=== PATIENT | female | born 1945 | race American Indian/Alaskan Native ===

== ENCOUNTER 2017-07-23 13:52 | Emergency (ER) | payer MEDICARE ==
[2017-07-23] MEDS ORDERED: ULTRAM PO ONE (17:38)
--- NOTE | 2017-07-23 17:40 | Emergency Department Report ---
Blank Doc - Documentation Documentation: Patient is a 71-year-old female who states that approximately 2 days ago she missed step and she felt a small amount of discomfort in the left ankle patient' s states that she started to use a heating pad and some [place] balm to try to help this area heal. Patient states that this morning she woke up in the ankle is significantly more swollen she has pain at the left lateral malleolus. Patient states that there is some discomfort also in the anterior left knee. Patient denies any falls. X-ray will be done to rule out stress fracture. Patient does not have any significant posterior calf tenderness or posterior knee tenderness. I do not suspect a DVT on initial assessmen patient will be reassessed after x-ray. Tiki
--- NOTE | 2017-07-23 17:44 | Emergency Department Report ---
ED Lower Extremity HPI - General Chief Complaint: Extremity Problem,Nontraumatic Stated Complaint: PAINFUL/SWELLING LEGS Time Seen by Provider: 07/23/17 17:28 Source: patient Mode of arrival: Wheelchair Limitations: No Limitations - History of Present Illness Initial Comments: Patient is a 71-year-old female who states that approximately 2 days ago she missed step and she felt a small amount of discomfort in the left ankle patient' s states that she started to use a heating pad and some [place] balm to try to help this area heal. Patient states that this morning she woke up in the ankle is significantly more swollen she has pain at the left lateral malleolus. Patient states that there is some discomfort also in the anterior left knee. Patient denies any falls. Pain is 9 out of 10 and achy. Located to the left outer ankle. Pain is worse with movement better with rest. Patient said that she's been ambulated on left ankle and swelling has been increasing over the past couple days. No medication taken per patient MD Complaint: ankle injury Onset/Timin -: days(s) Injury: Ankle: Left (left ankle pain and swelling status post injury) Type of Injury: other (missed up which causes ankle injury. Report that she rolled her ankle.) Place: street/outdoors Severity: severe Severity scale (0 -10): 9 Improves With: rest Worsens With: weight bearing, movement, palpation Context: walking Associated Symptoms: swelling, able to partially bear weight. denies: numbness , tingling Treatments Prior to Arrival: other (none) - Related Data Previous Rx's Medication Instructions Recorded Last Taken Type traMADol [Ultram] 50 mg PO Q6HR PRN #12 tablet 07/23/17 Unknown Rx Allergies Allergy/AdvReac Type Severity Reaction Status Date / Time No Known Allergies Allergy Verified 07/23/17 14:46 ED Review of Systems ROS: Stated complaint: PAINFUL/SWELLING LEGS Other details as noted in HPI Comment: All other systems reviewed and negative Constitutional: no symptoms reported Respiratory: no symptoms reported Cardiovascular: denies: chest pain, palpitations, dyspnea on exertion, orthopnea , edema, syncope, paroxysmal nocturnal dyspnea Gastrointestinal: denies: abdominal pain, nausea, vomiting Musculoskeletal: joint swelling, arthralgia. denies: back pain, myalgia Skin: denies: rash Neurological: abnormal gait. denies: headache, weakness, numbness, paresthesias , confusion ED Past Medical Hx - Past Medical History Previous Medical History?: Yes Hx Hypertension: Yes Hx Diabetes: Yes Additional medical history: kidney disease - Surgical History Past Surgical History?: Yes Additional Surgical History: knee, rotator cuff - Family History Family history: hypertension - Social History Smoking Status: Never Smoker Substance Use Type: None - Medications Home Medications: Home Medications Medication Instructions Recorded Confirmed Last Taken Type traMADol [Ultram] 50 mg PO Q6HR PRN #12 tablet 07/23/17 Unknown Rx ED Physical Exam - General Limitations: No Limitations General appearance: alert, in no apparent distress - Head Head exam: Present: atraumatic, normocephalic, normal inspection - Eye Eye exam: Present: normal appearance, PERRL, EOMI - ENT ENT exam: Present: normal exam, normal orophraynx, mucous membranes moist - Neck Neck exam: Present: normal inspection, tenderness, full ROM, other (no C-spine tenderness). Absent: lymphadenopathy - Respiratory Respiratory exam: Present: normal lung sounds bilaterally. Absent: respiratory distress, chest wall tenderness - Cardiovascular Cardiovascular Exam: Present: regular rate, normal rhythm, normal heart sounds - GI/Abdominal GI/Abdominal exam: Present: soft, normal bowel sounds. Absent: distended, tenderness - Extremities Exam Extremities exam: Present: tenderness, normal capillary refill, pedal edema, joint swelling, other (no clubbing or cyanosis. No swelling except for left ankle and foot swelling. +2 pulses all extremities. No neurovascular compromise. Patient with decrease strength to left lower extremity at ankle and foot due to pain and injury. Otherwise strength of other extremity 5/5). Absent: normal inspection, full ROM, calf tenderness - Expanded Lower Extremity Exam Left Hip exam: Present: normal inspection, full ROM, pelvic stability. Absent: tenderness, swelling, abrasion, laceration, ecchymosis, deformity, crepidus, dislocation, erythema, external rotation, internal rotation, shortening Upper Leg exam: Present: normal inspection, full ROM. Absent: tenderness, swelling, abrasion, laceration, ecchymosis, deformity, crepidus, dislocation, erythema Knee exam: Present: normal inspection, full ROM, full knee extension. Absent: tenderness, swelling, abrasion, ecchymosis, deformity, crepidus, dislocation, erythema, effusion, pain w/ pronation/supination, posterior draw sign, pain/ laxity with valgus, pain/laxity with varus Lower Leg exam: Present: normal inspection, full ROM. Absent: tenderness, swelling, abrasion, laceration, ecchymosis, deformity, crepidus, dislocation, erythema, palpable cord, Collins's sign Ankle exam: Present: tenderness (left outer malleolus tender to palpate tibial side. With swelling and decrease in movement.), swelling. Absent: normal inspection, full ROM, abrasion, laceration, ecchymosis, deformity, crepidus, dislocation, erythema Foot/Toe exam: Present: normal inspection, tenderness, swelling. Absent: full ROM (decreased range of motion to left foot due to pain and swelling.), abrasion , laceration, ecchymosis, deformity, crepidus, dislocation, erythema, amputation , puncture wound, foreign body, calcaneal tenderness, tenderness at base of 5th metatarsal, nail avulsion, subungual hematoma Neuro vascular tendon exam: Present: no vascular compromise, motor deficit ( decreased movement to left ankle due to pain and swelling secondary to injury), significant pain with passive ROM of distal joint. Absent: pulse deficit, abnormal cap refill, sensory deficit, tendon deficit, extremity cold to touch, pallor, abnormal 2-point discrimination, decreased fine/light touch, foot drop, peroneal nerve deficit Gait: Positive: antalgic - Back Exam Back exam: Present: normal inspection, full ROM, other (ambulates without any difficulties). Absent: tenderness, CVA tenderness (R), CVA tenderness (L), muscle spasm, paraspinal tenderness, vertebral tenderness, rash noted - Neurological Exam Neurological exam: Present: alert, oriented X3, abnormal gait (abnormal gait due to pain and injury), motor sensory deficit (normal sensation but movement to left lower extremity at the ankle), reflexes normal - Psychiatric Psychiatric exam: Present: normal affect, normal mood - Skin Skin exam: Present: warm, dry, intact, normal color. Absent: rash ED Course Vital Signs 07/23/17 14:46 Temperature 98.9 F Pulse Rate 71 Respiratory 16 Rate Blood Pressure 140/44 O2 Sat by Pulse 100 Oximetry - Reevaluation(s) Reevaluation #1: 07/23/17 19:09 Patient stable throughout ED stay. She was given Ultram 50 mg by mouth for left foot and ankle pain. Reevaluation #2: 07/23/17 19:12 See procedure note for details on OCL splint to the left ankle. - Orthopedic Splinting/Casting Injury #1 Side: left Lower Extremity Injury Location: ankle Lower Extremity Immobilizer: posterior splint (Gabriel) Other Orthopedic Equipment: crutches (demonstrate use of crutches effectively) Additional Comments: Patient with good color, sensation, movement and temperature 2 toes of left foot status post splint placement ED Lower Extremity MDM - Radiology Data Radiology results: report reviewed X-ray of left ankle reveal nondisplaced fracture left distal fibula, pes planus and bone spur. - Medical Decision Making ED course: status post left ankle injury with x-rays showing patient with fracture to distal fibula, left. Nondisplaced. This is discussed with patient. Prior to x-ray result patient was placed in ankle sterile for stress fracture. Final x-ray findings explained to patient and ankle stirrup removed and patient placed in a posterior ankle splint, [place]. Crutches with training and she demonstrated effective use of crutches. Patient was given Ultram 50 mg when necessary emergency room to manage pain which is that she does have. She has good neurovascular status. I explained to patient and family the diagnosis and treatment plan and they voiced understanding. Patient to follow up with Dr. Ricardo for orthopedic doctor in 2-3 days. Rice therapy explained. Patient discharged home with prescription for Ultram. Critical care attestation.: If time is entered above; I have spent that time in minutes in the direct care of this critically ill patient, excluding procedure time. ED Disposition Clinical Impression: Arthralgia of left ankle Fracture of fibula, distal Qualifiers: Encounter type: initial encounter Fracture type: closed Fracture morphology: unspecified fracture morphology Laterality: left Qualified Code(s): S82.832A - Other fracture of upper and lower end of left fibula, initial encounter for closed fracture Injury of ankle, left Qualifiers: Encounter type: initial encounter Qualified Code(s): S99.912A - Unspecified injury of left ankle, initial encounter Disposition: - TO HOME OR SELFCARE Is pt being admited?: No Does the pt Need Aspirin: No Condition: Stable Instructions: Arthralgia (ED), Ankle Fracture (ED), Splint Care (ED), Crutch Instructions (ED), RICE Therapy (ED) Additional Instructions: Please follow up with orthopedic doctor in 2-3 days Take medication as prescribed but please do not drive or operate heavy machinery as this medication causes drowsiness. Referred to discharge instruction on splint care. Referred to discharge instruction in Rice therapy. Prescriptions: traMADol [Ultram] 50 mg PO Q6HR PRN #12 tablet PRN Reason: Pain Referrals: CANDELARIA SERVIN MD [Staff Physician] - 2-3 Days Forms: Accompanied Note
--- NOTE | 2017-07-23 18:57 | XRay Report ---
FINAL REPORT EXAM: XR ANKLE 3+V LT HISTORY: injury lateral mall pain/ swelling TECHNIQUE: Left ankle three views PRIORS: None. FINDINGS: There is diffuse soft tissue swelling On oblique view there is a vertical lucency seen through distal fibular metadiaphysis consistent nondisplaced fracture. Joint spaces are within normal limits. Noted is pes planus deformity of the foot. There is a plantar calcaneal enthesophyte. IMPRESSION: Nondisplaced fracture through the distal fibula Soft tissue swelling Pes planus Heel spur
[2017-07-23 21:23] VITALS: BP 132/58
== END 2017-07-23 21:23 | disposition home or self-care (01) ==
LOC: ED 13:52
DX: S82.832A Other fracture of upper and lower end of left fibula, initial encounter for closed fracture (principal); I10 Essential (primary) hypertension; E11.9 Type 2 diabetes mellitus without complications; X58.XXXA Exposure to other specified factors, initial encounter; Y93.01 Activity, walking, marching and hiking; Y99.8 Other external cause status; Y92.410 Unspecified street and highway as the place of occurrence of the external cause